=== PATIENT | female | born 1945 | race Caucasian/White ===

== ENCOUNTER 2023-12-30 18:49 | Emergency (ER) | payer MEDICARE, BC ==
[2023-12-30] MEDS: Ketorolac 30 MG/ML SDV IVPUSH ONE (20:32)
[2023-12-30] MEDS: Sodium Chloride 0.9% 10 ML Syringe FLUSH PRN (20:33)
[2023-12-30 20:36] LABS: BASOPHILS ABSOLUTE AUTO 0.1 K/mm3 (0.0-0.2); EOSINOPHILS ABSOLUTE AUTO 0.5 K/mm3 (0.0-0.4); EOSINOPHILS PERCENT AUTO 5.3 % (0.0-6.0); HEMATOCRIT 37.9 % (37.0-47.0); HEMOGLOBIN 11.6 gm/dl (12.0-16.0); IMMATURE GRAN ABSOLUTE AUTO 0.02 K/mm3 (0.00-0.05); IMMATURE GRAN PERCENT AUTO 0.2 % (0.0-0.4); LYMPHOCYTES ABSOLUTE AUTO 2.2 K/mm3 (1.0-4.8); LYMPHOCYTES PERCENT AUTO 21.5 % (24.0-44.0); MEAN CORPUSCULAR HEMOGLOBIN 25.2 pg (28.0-32.0); MEAN CORPUSCULAR HGB CONC 30.6 g/dl (32.0-36.0); MEAN CORPUSCULAR VOLUME 82.4 fl (83.0-99.0); MONOCYTES ABSOLUTE AUTO 1.2 K/mm3 (0.0-0.8); MONOCYTES PERCENT AUTO 11.9 % (0.0-8.0); NEUTROPHILS ABSOLUTE AUTO 6.1 K/mm3 (1.8-7.7); NEUTROPHILS PERCENT AUTO 60.1 % (41.0-71.0); PLATELET COUNT,PLT 362 K/mm3 (150-400); WHITE BLOOD CELL COUNT,WBC 10.18 K/mm3 (3.9-11.3)
[2023-12-30 20:37] LABS: APPEARANCE,URINE CLEAR (Clear); BILIRUBIN,URINE NEGATIVE (Negative); COLOR,URINE YELLOW (Yellow); GLUCOSE,URINE NEGATIVE (Negative); KETONES,URINE NEGATIVE (Negative); LEUKOCYTE ESTERASE,URINE NEGATIVE (Negative); NITRITE,URINE NEGATIVE (Negative); OCCULT BLOOD,URINE NEGATIVE (Negative); PROTEIN,URINE NEGATIVE (Negative); UROBILINOGEN,URINE 0.2 (0.2-1.0)
[2023-12-30] MEDS: Dicyclomine 10 MG Cap PO ONE (20:37)
[2023-12-30 21:05] LABS: A/G RATIO 0.7 (1-2); ALBUMIN 2.7 g/dl (3.4-5.0); ANION GAP 10.7 (5-15); BILIRUBIN TOTAL 0.2 mg/dL (0.2-1.0); C-REACTIVE PROTEIN 2.56 mg/dL (<0.30); CALCIUM 8.9 mg/dL (8.5-10.1); EST CRCL DRUG DOSING (CG) 33.84 mL/min; MAGNESIUM 1.8 mg/dL (1.8-2.4); POTASSIUM,K 3.7 mEq/L (3.5-5.1); PROTEIN TOTAL,TP 6.8 g/dl (6.4-8.2)
[2023-12-30] MEDS: Sodium Chloride 0.9% 10 ML Syringe FLUSH ONE (21:32)
[2023-12-30] MEDS: Iopamidol 612 MG/ML 100 ML Bottle IVPUSH ONE (21:32)
[2023-12-30] MEDS: Alum Hydrox/Mag Hydrox/Simeth 30 ML, Lidocaine 2% 15 ML PO ONE (22:46)
[2023-12-30] MEDS: Sucralfate Suspension 1 GM/10 ML Cup PO ONE (23:41)
[2023-12-30] MEDS: Pantoprazole 40 MG Vial IVPUSH ONE (23:42)
== END 2023-12-31 00:20 | disposition home or self-care (01) ==
LOC: JD.ED 18:49
DX: K25.3 Acute gastric ulcer without hemorrhage or perforation (principal); Z86.16 Personal history of COVID-19; Z87.891 Personal history of nicotine dependence
CPT/HCPCS: 36415; 74177; 80053; 81003; 83735; 84484; 85025; 86140; 93005; 96374; 96375; 99284; A9270; J1885; J2470; J3490; Q9967; 93010

== ENCOUNTER 2024-01-17 07:49 | Day surgery (SDC) | payer MEDICARE, BC ==
[~2024-01-17 07:49] MED LIST: Sodium Chloride 0.9% 10 ML Syringe FLUSH PRN; Sodium Chloride 0.9% 10 ML Syringe FLUSH SCH
[2024-01-17] MEDS: Lactated Ringers 1,000 ML IV SCH (08:05)
[2024-01-17] MEDS ORDERED: Propofol 200 MG/20 ML SDV ONE ×2 (08:20→08:31)
[2024-01-17] MEDS ORDERED: Lidocaine 1% 6 ML ONE (08:39)
== END 2024-01-17 09:47 | disposition home or self-care (01) ==
LOC: JD.SDS 07:49
PROVIDERS: ATTEND Surgery
DX: K29.50 Unspecified chronic gastritis without bleeding (principal); K25.7 Chronic gastric ulcer without hemorrhage or perforation; F41.9 Anxiety disorder, unspecified; Z93.1 Gastrostomy status; Z88.8 Allergy status to other drugs, medicaments and biological substances; Z79.899 Other long term (current) drug therapy; Z87.891 Personal history of nicotine dependence
CPT/HCPCS: 43239; J2704; J7120; 00731; 99100; J3490

== ENCOUNTER 2024-02-14 06:42 | Inpatient (IN) | payer MEDICARE, BC ==
[~2024-02-14 06:42] MED LIST changes: +Bupivacaine 0.5% 30 ML SDV ONE; +Dexamethasone 4 MG/ML 5 ML MDV ONE; +EPINEPHrine 1 MG/ML SDV ONE; +Ketamine 200 MG/20 ML MDV ONE; +Lidocaine 1% 5 ML VIAL ONE; +Ondansetron 4 MG/2 ML SDV ONE; +Propofol 200 MG/20 ML SDV ONE; +Rocuronium 50 MG/5 ML Vial ONE; +Ropivacaine 0.5% 5 MG/ML 30 ML SDV ONE; -Sodium Chloride 0.9% 10 ML Syringe FLUSH SCH; +ceFAZolin 2 GM Vial ONE; +dexmedeTOMIDine HCl 200 MCG/2 ML SDV ONE; +ePHEDrine 50 MG/ML SDV ONE; +fentaNYL 100 MCG/2 ML SDV ONE
[2024-02-14] MEDS: Lactated Ringers 1,000 ML IV SCH ×2 (07:15→23:50)
[2024-02-14] MEDS: Acetaminophen 325 MG Tab PO ONE (07:15)
[2024-02-14] MEDS: Celecoxib 100 MG Cap PO ONE (07:45)
[2024-02-14] MEDS ORDERED: Sodium Chloride 0.9% 250 ML IV ONE (08:20)
[2024-02-14] MEDS ORDERED: Lactated Ringers 1,000 ML IV ONE ×2 (08:20→08:48)
[2024-02-14] MEDS ORDERED: Sodium Chloride 0.9% 100 ML IV ONE (08:20)
[2024-02-14] MEDS ORDERED: metroNIDAZOLE/Normal Saline 500 MG in Premix Bag 1 BAG IV ONE (08:20)
[2024-02-14] MEDS ORDERED: fentaNYL 100 MCG/2 ML SDV IVPUSH PRN (09:00)
[2024-02-14] MEDS ORDERED: Lactated Ringers 1,000 ML ONE (13:48)
[2024-02-14] MEDS ORDERED: Promethazine 25 MG Tab PO PRN (15:28)
[2024-02-14] MEDS: HYDROmorphone 0.5 MG/0.5 ML Syringe IVPUSH ONE (15:33)
[2024-02-14] MEDS: Sodium Chloride 0.9% 10 ML Syringe FLUSH SCH (15:34)
[2024-02-14] MEDS: oxyCODONE 5 MG Tab PO PRN (15:40)
[2024-02-14] MEDS ORDERED: Lactated Ringers 1,000 ML IV SCH (15:45)
[2024-02-14] MEDS: Enoxaparin 30 MG/0.3 ML Syringe SUBCUT SCH (17:39)
[2024-02-14] MEDS: Lactated Ringers 500 ML IV ONE (17:42)
[2024-02-15] MEDS: Acetaminophen 325 MG Tab PO PRN (04:21)
[2024-02-15 08:36] LABS: BASOPHILS PERCENT AUTO 0.4 % (0.0-1.0); EOSINOPHILS PERCENT AUTO 0.1 % (0.0-6.0); HEMATOCRIT 27.4 % (37.0-47.0); IMMATURE GRAN ABSOLUTE AUTO 0.05 K/mm3 (0.00-0.05); IMMATURE GRAN PERCENT AUTO 0.5 % (0.0-0.4); LYMPHOCYTES ABSOLUTE AUTO 1.4 K/mm3 (1.0-4.8); LYMPHOCYTES PERCENT AUTO 12.8 % (24.0-44.0); MEAN CORPUSCULAR HEMOGLOBIN 23.6 pg (28.0-32.0); MEAN CORPUSCULAR HGB CONC 29.9 g/dl (32.0-36.0); MEAN PLATELET VOLUME 12.2 fl (9.4-12.3); MONOCYTES ABSOLUTE AUTO 1.3 K/mm3 (0.0-0.8); MONOCYTES PERCENT AUTO 12.2 % (0.0-8.0); RED BLOOD CELL COUNT 3.47 M/mm3 (4.10-5.30); WHITE BLOOD CELL COUNT,WBC 10.84 K/mm3 (3.9-11.3)
[2024-02-15 08:38] LABS: HEMOGLOBIN 8.2 gm/dl (12.0-16.0); PLATELET COUNT,PLT 232 K/mm3 (150-400)
[2024-02-15 09:02] LABS: ANION GAP 10.5 (5-15); CALCIUM 7.6 mg/dL (8.5-10.1); CREATININE 0.5 mg/dL (0.55-1.02); EST CRCL DRUG DOSING (CG) 67.68 mL/min; POTASSIUM,K 3.5 mEq/L (3.5-5.1)
[2024-02-15] MEDS: Morphine 2 MG/ML SYRINGE IVPUSH PRN (09:08)
[2024-02-15] MEDS: Ondansetron 4 MG Tab.DIS PO PRN (12:27)
[2024-02-15] MEDS: Lactated Ringers 1,000 ML IV SCH (17:51)
[2024-02-16 04:31] LABS: HEMATOCRIT 27.9 % (37.0-47.0); HEMOGLOBIN 8.3 gm/dl (12.0-16.0); MEAN CORPUSCULAR HEMOGLOBIN 23.4 pg (28.0-32.0); MEAN CORPUSCULAR HGB CONC 29.7 g/dl (32.0-36.0); MEAN CORPUSCULAR VOLUME 78.8 fl (83.0-99.0); MEAN PLATELET VOLUME 11.7 fl (9.4-12.3); PLATELET COUNT,PLT 262 K/mm3 (150-400); RED BLOOD CELL COUNT 3.54 M/mm3 (4.10-5.30); WHITE BLOOD CELL COUNT,WBC 11.37 K/mm3 (3.9-11.3)
== END 2024-02-16 11:58 | disposition home or self-care (01) | DRG 328 ==
LOC: JD.MS 06:42 → UNDOADMIN 06:42 → JD.MS 08:22
PROVIDERS: ADMIT Surgery; ATTEND Surgery
PROC: 0DNA4ZZ Release Jejunum, Percutaneous Endoscopic Approach (ICD-10-PCS; 2024-02-14)
PROC: 0DTA4ZZ Resection of Jejunum, Percutaneous Endoscopic Approach (ICD-10-PCS; 2024-02-14)
PROC: 0D164ZA Bypass Stomach to Jejunum, Percutaneous Endoscopic Approach (ICD-10-PCS; principal; 2024-02-14 07:30)
DX: K28.9 Gastrojejunal ulcer, unspecified as acute or chronic, without hemorrhage or perforation (principal); F41.9 Anxiety disorder, unspecified; M81.0 Age-related osteoporosis without current pathological fracture; H26.9 Unspecified cataract; D50.9 Iron deficiency anemia, unspecified; M19.90 Unspecified osteoarthritis, unspecified site; H91.90 Unspecified hearing loss, unspecified ear; H54.7 Unspecified visual loss; Z88.8 Allergy status to other drugs, medicaments and biological substances; Z98.51 Tubal ligation status; Z98.49 Cataract extraction status, unspecified eye; Z87.11 Personal history of peptic ulcer disease; Z86.16 Personal history of COVID-19; Z98.890 Other specified postprocedural states; Z79.899 Other long term (current) drug therapy; Z87.891 Personal history of nicotine dependence
CPT/HCPCS: 00790; 36415; 64488; 80048; 85025; 85027; 94761; 99100; A9270-GY; J0171; J0665; J0690; J1100; J1650; J1836; J2270; J2405; J2704; J2795; J3010; J3490; J7050; J7120